=== PATIENT | male | born 1960 | race Caucasian/White ===

== ENCOUNTER 2018-04-04 20:26 | Emergency (ER) | payer OTHER ==
--- NOTE | 2018-04-04 20:32 | EDPHY ---
H & P Source: Patient, EMS Exam Limitations: Intoxication - Medical/Surgical History Hx Asthma: No Hx Chronic Respiratory Disease: No Hx Diabetes: No Hx Cardiac Disease: No Hx Renal Disease: No Hx Cirrhosis: No Hx Alcoholism: No Hx HIV/AIDS: No Hx Splenectomy or Spleen Trauma: No Other PMH: GERD, asthma, hyperlipidemia - Social History Smoking Status: Never smoked Time Seen by Provider: 04/04/18 20:29 HPI/ROS: HPI: This is a 57-year-old male who presents with Chief Complaint: Passed out after smoking a cigar Location: body Quality: Syncope Duration: Prior to arrival Signs and Symptoms: no fever, no nausea, no vomiting, no photophobia, no noise sensitivity, no neck stiffness, no ear pain, no tinnitus, no nasal congestion, no sinus pressure, no weakness, no radiation, no aura, no seizure activity Timing: Acute, resolved Severity: Moderate Context: Patient presents via EMS with complaints of "passing out after smoking a cigar." Patient reports that he is a workaholic. Has not eaten any food today. After work was hanging out with some of his mary friends and had a small amount of scotch and was smoking a cigar. He reports that while he was smoking the scar he started to feel lightheaded and nauseous. He then ambulated to the restroom to urinate and then felt like the room went black. He then woke up on his back on the bathroom floor. Friends at bedside reports that they heard him fall and rushed to his side. Denies any seizure activity, postictal, incontinence. Patient reports that he feels fine at this time. No cardiac history. Denies any headache, vision changes, dizziness. Denies that the room is spinning. Modifying Factors: None Comment: ROS: A comprehensive 10 system review of systems is otherwise negative aside from elements mentioned in the history of present illness. MEDICAL/SURGICAL/SOCIAL HISTORY: Medical history: Hyperlipidemia Surgical history: Denies Social history: , employed. Nonsmoker. Family history noncontributory. CONSTITUTIONAL: Extremely polite and cooperative adult white male, awake and alert, no obvious distress HEENT: Atraumatic and normocephalic, PERRL, EOMI. No nystagmus. Nares patent; no rhinorrhea; no nasal mucosal edema. Tympanic membranes clear. Oropharynx clear, no exudate and moist pink mucosa. Airway patent. No lymphadenopathy. No meningismus. No carotid bruits. Cardiovascular: Normal S1/S2, regular rate, regular rhythm, without murmur rub or gallop. PULMONARY/CHEST: Symmetrical and nontender. Clear to auscultation bilaterally. Good air movement. No accessory muscle usage. ABDOMEN: Soft, nondistended, nontender, no rebound, no guarding, no peritoneal signs, no masses or organomegaly. No CVAT. EXTREMITIES: 2/2 pulses, strength 5/5, no deformities, no clubbing, no cyanosis or edema. NEUROLOGICAL: no focal neuro deficits. GCS 15. Normal hmygir-ur-kgcf test. Normal lyvq-xf-duti test. Normal cerebellar testing. SKIN: Warm and dry, no erythema. no rash. Good capillary refill. (Mabel Anton) Constitutional: Initial Vital Signs Temperature (C) 36.5 C 04/04/18 20:35 Heart Rate 72 04/04/18 20:35 Respiratory Rate 16 04/04/18 20:35 Blood Pressure 144/102 H 04/04/18 20:35 O2 Sat (%) 98 04/04/18 20:35 O2 Delivery Mode Room Air Allergies/Adverse Reactions: shellfish derived Allergy (Verified 04/04/18 20:35) tetracycline Allergy (Verified 12/26/14 22:03) tree nut Allergy (Verified 04/04/18 20:35) fruit Allergy (Uncoded 04/04/18 20:35) Home Medications: Medication Instructions Recorded "Statin" 04/04/18 Medical Decision Making - Diagnostics EKG Interpretation: 12 lead EKG: Indication: Syncope Rhythm: Normal sinus rhythm, rate of 74 beats per minute [place]: Normal Intervals: [place] 236 QRS: Normal ST segments: Normal INTERPRETATION: No acute ischemic changes, no arrhythmias The 12 lead EKG was interpreted by myself. (Mabel Anton) ED Course/Re-evaluation: EKG time is 8:39 p.m.; EKG shows a narrow complex normal sinus rhythm with a ventricular rate of 74. Probable left atrial enlargement. Borderline [place] Interval prolongation. The QRS, QT intervals are within normal limits. There are no ST-T wave changes indicative of ischemic or injury pattern. No evidence of right heart strain. No evidence of Brugada syndrome, WPW, hypertrophic cardiomyopathy. Interpreted by me. (Meagan Patten) Vital signs reviewed and show blood pressure 144/102 upon arrival. EKG at bedside after reviewing attending shows no acute ischemic changes, no arrhythmias Laboratory studies obtained including troponin. Given 1 L normal saline. Orthostatics negative. 2054: Notified by [facility] that troponin is 0.01. Reviewed labs and no signs of anemia, leukocytosis, electrolyte imbalance, acute kidney injury. Reassessed patient who reports resolution of symptoms. at bedside. [place] syncope Rule: low risk Offered patient admission overnight for observation overnight and cardiac monitoring and he and his politely decline. They prefer to follow up outpatient with Cardiology/primary care provider. Patient feels that this is related to cigar and alcohol use which is reasonable but we did discuss the causes of syncope and the potential risk of life-threatening conditions. This patient was seen under the supervision of my secondary supervising physician. I evaluated care for this patient independently. Discussed this patient with Dr. Patten. (Mabel Anton) Differential Diagnosis: Dizziness including but not limited to peripheral and central causes of vertigo , orthostatic causes including dehydration, and blood loss. Syncope including but not limited to vasovagal syncope, arrhythmia, dehydration , and blood loss. (Mabel Anton) - Data Points Laboratory Results: Laboratory Results 04/04/18 20:30 04/04/18 20:30 04/04/18 04/04/18 04/04/18 20:33 20:30 20:30 WBC 6.18 10^3/uL 10^3/uL (3.80-9.50) RBC 5.01 10^6/uL 10^6/uL (4.40-6.38) Hgb 14.7 g/dL g/dL (13.7-17.5) Hct 43.2 % % (40.0-51.0) MCV 86.2 fL fL (81.5-99.8) MCH 29.3 pg pg (27.9-34.1) MCHC 34.0 g/dL g/dL (32.4-36.7) RDW 13.2 % % (11.5-15.2) Plt Count 203 10^3/uL 10^3/uL (150-400) MPV 10.8 fL fL (8.7-11.7) Neut % (Auto) 53.6 % % (39.3-74.2) Lymph % (Auto) 36.6 % % (15.0-45.0) [place] % (Auto) 5.2 % % (4.5-13.0) Eos % (Auto) 3.4 % % (0.6-7.6) Baso % (Auto) 1.0 % % (0.3-1.7) Nucleat RBC Rel Count 0.0 % % (0.0-0.2) Absolute Neuts (auto) 3.32 10^3/uL 10^3/uL (1.70-6.50) Absolute Lymphs (auto) 2.26 10^3/uL 10^3/uL (1.00-3.00) Absolute Monos (auto) 0.32 10^3/uL 10^3/uL (0.30-0.80) Absolute Eos (auto) 0.21 10^3/uL 10^3/uL (0.03-0.40) Absolute Basos (auto) 0.06 10^3/uL 10^3/uL (0.02-0.10) Absolute Nucleated RBC 0.00 10^3/uL 10^3/uL (0-0.01) Immature Gran % 0.2 % % (0.0-1.1) Immature Gran # 0.01 10^3/uL 10^3/uL (0.00-0.10) Sodium 140 mEq/L mEq/L (135-145) Potassium 3.9 mEq/L mEq/L (3.3-5.0) Chloride 100 mEq/L mEq/L (97-110) Carbon Dioxide 29 mEq/l mEq/l (22-31) Anion Gap 11 mEq/L mEq/L (6-14) BUN 15 mg/dL mg/dL (7-23) Creatinine 1.0 mg/dL mg/dL (0.7-1.3) Estimated GFR > 60 Glucose 127 mg/dL H mg/dL (70-100) Calcium 9.8 mg/dL mg/dL (8.5-10.4) POC Troponin I 0.01 ng/mL ng/mL (0.00-0.08) Medications Given: Discontinued Medications Sodium Chloride (Ns) 1,000 mls @ 0 mls/hr IV EDNOW ONE; Wide Open PRN Reason: Protocol Stop: 10/17/18 20:38 Last Admin: 04/04/18 20:47 Dose: 1,000 mls Point of Care Test Results: Chemistry 04/04/18 20:33 POC Troponin I 0.01 ng/mL ng/mL (0.00-0.08) Departure - Departure Disposition: Home, Routine, Self-Care Clinical Impression: Non-cardiac syncope Condition: Good Instructions: Syncope (ED) Additional Instructions: Please follow-up with your primary care provider in 1 week. You have been given a referral to cardiology to use if symptoms persist or reoccur. Return at once for any worsening symptoms or concerns. Referrals: Steven Quezada MD [Medical Doctor] - As per Instructions
[2018-04-04] MEDS ORDERED: NS 1,000 ML IV ONE (20:37)
[2018-04-04 20:49] LABS: PLATELET COUNT 203 10^3/uL (150-400)
[2018-04-04 21:09] VITALS: BP 126/89
--- NOTE | 2018-04-05 09:16 | CPEKG ---
Test Reason : OPEN Blood Pressure : / mmHG Vent. Rate : 074 BPM Atrial Rate : 074 BPM P-R Int : 236 ms QRS Dur : 099 ms QT Int : 413 ms P-R-T Axes : 039 005 036 degrees QTc Int : 459 ms Sinus rhythm Prolonged RI interval Left atrial enlargement Confirmed by Madison Shook ([id number]) on 04/05/2018 9:15:44 AM Referred By: Confirmed By:Madison Shook
== END 2018-04-04 21:35 | disposition home or self-care (01) ==
LOC: EDBD → EDUNIT#
DX: R55 Syncope and collapse (principal); E78.5 Hyperlipidemia, unspecified; J45.909 Unspecified asthma, uncomplicated
CPT/HCPCS: 84484-PO